=== PATIENT | male | born 1955 | race Caucasian/White ===

== ENCOUNTER 2020-02-19 12:13 | Outpatient (REF) | payer BC, SELFPAY ==
[2020-02-19 12:54] LABS: Basophils Absolute Auto 0.1 X10*3/uL (0.0-0.2); Basophils Percent Auto 0.9 % (0-2); Eosinophils Absolute Auto 0.3 X10*3/uL (0.0-0.4); Eosinophils Percent Auto 3.4 % (0-4); Hematocrit 41.5 % (42-52); Hemoglobin 13.2 g/dl (14.0-18.0); Imm Gran Abs Auto 0.02 X10*3/uL (0.00-0.03); Imm Gran Pct Auto 0.2 % (0.0-0.4); Lymphocytes Absolute Auto 2.4 X10*3/uL (1.2-4.9); Lymphocytes Percent Auto 25.4 % (20-40); MANUAL DIFF FLAG NO; Mean Corpuscular HGB Conc 31.8 g/dl (31.0-36.0); Mean Corpuscular Volume 88.1 fL (80-98); Mean Platelet Volume 8.9 fL (9.4-12.4); Monocytes Absolute Auto 0.7 X10*3/uL (0.1-1.2); Monocytes Percent Auto 7.8 % (2-11); Neutrophils Absolute Auto 5.9 X10*3/uL (2.0-8.3); Neutrophils Percent Auto 62.3 % (45-73); Platelet Count 259 X10*3/uL (160-400); Red Blood Count 4.71 X10*6/uL (4.60-5.80); Red Cell Distribution Width 13.4 % (11.0-16.0); White Blood Count 9.5 X10*3/uL (4.8-10.8)
[2020-02-19 13:37] LABS: Alanine Aminotransferase 9 U/L (0-40); Albumin Level 4.2 g/dL (3.5-5.0); Alkaline Phosphatase 50 U/L (39-117); Amylase 63 U/L (28-100); Anion Gap 11 (12-20); Aspartate Amino Transferase 15 U/L (5-37); Bilirubin Total 0.6 mg/dL (0.0-1.0); Blood Urea Nitrogen 8 mg/dL (9-16); C Reactive Protein 0.29 mg/dL (< or = 0.50); Calcium 8.7 mg/dL (8.4-10.2); Carbon Dioxide 29 mmol/L (22-29); Chloride 101 mmol/L (96-108); Cholesterol 240 mg/dL; Estimated Glomerular Filt Rate > 60; Glucose Fasting 82 mg/dL (60-99); HDL Cholesterol 54 mg/dL; Iron 70 mcg/dL (45-160); LDL Cholesterol Calculated 172 mg/dl; Lipase 16 U/L (8-78); Percent Iron Saturation 21 % (15-50); Potassium 4.4 mmol/l (3.3-5.1); Sodium 137 mmol/L (135-145); Total Iron Binding Capacity 332 mcg/dL (228-428); Total Protein 6.9 g/dL (6.5-8.0); Triglycerides 71 mg/dL; Unsaturated Iron Binding 262 ug/dL
[2020-02-19 13:55] LABS: Erythrocyte Sedimentation Rate 6 MM/HR (0-15)
[2020-02-19 13:58] LABS: Ferritin 193 ng/mL (20-250)
== END 2020-02-19 12:14 | disposition home or self-care (01) ==
LOC: HO.MANLDS 12:13
PROVIDERS: PCP Internal Medicine; Visit Provider Physician Assistant
DX: R10.30 Lower abdominal pain, unspecified (principal); E78.5 Hyperlipidemia, unspecified
CPT/HCPCS: 36415; 80053; 80061; 82150; 82728; 83540; 83690; 85025; 85652; 86140

== ENCOUNTER 2020-11-25 11:48 | Outpatient (REF) | payer BC, SELFPAY ==
[2020-11-25 15:01] LABS: Cholesterol 185 mg/dL; HDL Cholesterol 61 mg/dL; LDL Cholesterol Calculated 109 mg/dl; Triglycerides 76 mg/dL
== END 2020-11-25 11:49 | disposition home or self-care (01) ==
LOC: HO.MANLDS 11:48
PROVIDERS: PCP Internal Medicine; Visit Provider Internal Medicine
DX: E78.00 Pure hypercholesterolemia, unspecified (principal)
CPT/HCPCS: 36415; 80061

== ENCOUNTER 2021-07-22 09:47 | Outpatient (REF) | payer BC, SELFPAY ==
[2021-07-22 11:24] LABS: Cholesterol 184 mg/dL; HDL Cholesterol 62 mg/dL; LDL Cholesterol Calculated 114 mg/dl; Triglycerides 44 mg/dL
== END 2021-07-22 09:48 | disposition home or self-care (01) ==
LOC: HO.MANLDS 09:47
PROVIDERS: PCP Internal Medicine; Visit Provider Internal Medicine
DX: E78.00 Pure hypercholesterolemia, unspecified (principal)
CPT/HCPCS: 36415; 80061

== ENCOUNTER 2021-12-17 10:25 | Outpatient (REF) | payer BC, SELFPAY ==
[2021-12-17 14:20] LABS: Cholesterol 179 mg/dL; HDL Cholesterol 65 mg/dL; LDL Cholesterol Calculated 107 mg/dl; Triglycerides 39 mg/dL
[2021-12-17 14:28] LABS: Prostate Specific Antigen 0.16 ng/mL (<0.05-4.0)
== END 2021-12-17 10:26 | disposition home or self-care (01) ==
LOC: HO.MANLDS 10:25
PROVIDERS: Visit Provider Internal Medicine
DX: Z12.5 Encounter for screening for malignant neoplasm of prostate (principal)
CPT/HCPCS: 36415; 80061; 84153

== ENCOUNTER 2022-07-01 11:49 | Outpatient (REF) | payer BC, SELFPAY ==
[2022-07-01 15:07] LABS: Cholesterol 263 mg/dL; HDL Cholesterol 65 mg/dL; LDL Cholesterol Calculated 186 mg/dl; Triglycerides 64 mg/dL
== END 2022-07-01 11:50 | disposition home or self-care (01) ==
LOC: HO.MANLDS 11:49
PROVIDERS: Visit Provider Internal Medicine
DX: E78.00 Pure hypercholesterolemia, unspecified (principal)
CPT/HCPCS: 36415; 80061

== ENCOUNTER 2023-05-18 10:30 | Outpatient (REF) | payer BC, SELFPAY ==
[2023-05-18 13:12] LABS: MANUAL DIFF FLAG NO
[2023-05-18 13:40] LABS: Basophils Absolute Auto 0.1 X10*3/uL (0.0-0.2); Eosinophils Absolute Auto 0.4 X10*3/uL (0.0-0.4); Eosinophils Percent Auto 4.3 % (0-4); Hematocrit 39.7 % (42.0-52.0); Hemoglobin 12.6 g/dl (14.0-18.0); Imm Gran Abs Auto 0.01 X10*3/uL (0.00-0.03); Imm Gran Pct Auto 0.1 % (0.0-0.4); Lymphocytes Absolute Auto 2.3 X10*3/uL (1.2-4.9); Lymphocytes Percent Auto 24.3 % (20-40); Mean Corpuscular HGB Conc 31.7 g/dl (31.0-36.0); Mean Corpuscular Hemoglobin 28.1 pg (27.0-33.0); Mean Corpuscular Volume 88.4 fL (80.0-98.0); Mean Platelet Volume 9.2 fL (9.4-12.4); Monocytes Absolute Auto 0.8 X10*3/uL (0.1-1.2); Monocytes Percent Auto 8.1 % (2-11); Neutrophils Percent Auto 62.2 % (45-73); Platelet Count 229 X10*3/uL (160-400); Red Blood Count 4.49 X10*6/uL (4.60-5.80); Red Cell Distribution Width 13.8 % (11.0-16.0); White Blood Count 9.6 X10*3/uL (4.8-10.8)
[2023-05-18 14:24] LABS: Vitamin B12 > 2000 pg/mL (200-900)
[2023-05-18 14:26] LABS: Alanine Aminotransferase 15 U/L (0-40); Alkaline Phosphatase 37 U/L (39-117); Anion Gap 11 (12-20); Aspartate Amino Transferase 17 U/L (5-37); Bilirubin Total 0.7 mg/dL (0.0-1.0); Blood Urea Nitrogen 12 mg/dL (9-16); Calcium 9.1 mg/dL (8.4-10.2); Carbon Dioxide 29 mmol/L (22-29); Chloride 105 mmol/L (96-108); Cholesterol 177 mg/dL (<200); Estimated Glomerular Filt Rate > 60; Ferritin 161 ng/mL (20-250); Glucose Random 88 mg/dL (60-115); HDL Cholesterol 67 mg/dL (>40); Iron 59 mcg/dL (45-160); LDL Cholesterol Calculated 100 mg/dL (<100); Percent Iron Saturation 21 % (15-50); Potassium 4.8 mmol/L (3.3-5.1); Sodium 140 mmol/L (135-145); Total Iron Binding Capacity 284 mcg/dL (228-428); Total Protein 6.7 g/dL (6.5-8.0); Triglycerides 51 mg/dL (<150); Unsaturated Iron Binding 225 ug/dL
[2023-05-18 14:27] LABS: Prostate Specific Antigen 0.43 ng/mL (<0.05-4.0)
== END 2023-05-18 10:31 | disposition home or self-care (01) ==
LOC: HO.MANLDS 10:30
PROVIDERS: Visit Provider Internal Medicine
DX: Z12.5 Encounter for screening for malignant neoplasm of prostate (principal); E78.00 Pure hypercholesterolemia, unspecified
CPT/HCPCS: 36415; 80053; 80061; 82607; 82728; 83540; 84153; 85025

== ENCOUNTER 2023-06-25 13:31 | Outpatient (REF) | payer BC, SELFPAY ==
[2023-06-25 18:15] LABS: Alanine Aminotransferase 12 U/L (0-40); Albumin Level 4.1 g/dL (3.5-5.0); Alkaline Phosphatase 40 U/L (39-117); Aspartate Amino Transferase 17 U/L (5-37); Bilirubin Direct 0.2 mg/dL (0.0-0.5); Bilirubin Total 0.6 mg/dL (0.0-1.0); Total Protein 6.7 g/dL (6.5-8.0)
== END 2023-06-25 13:32 | disposition home or self-care (01) ==
LOC: HO.MANLDS 13:31
PROVIDERS: Visit Provider Internal Medicine
DX: B35.1 Tinea unguium (principal)
CPT/HCPCS: 36415; 80076

== ENCOUNTER 2024-01-11 11:43 | Outpatient (REF) | payer BC, SELFPAY ==
[2024-01-11 13:43] LABS: MANUAL DIFF FLAG NO
[2024-01-11 13:48] LABS: Basophils Absolute Auto 0.1 X10*3/uL (0.0-0.2); Basophils Percent Auto 0.9 % (0-2); Eosinophils Absolute Auto 0.3 X10*3/uL (0.0-0.4); Eosinophils Percent Auto 3.4 % (0-4); Hematocrit 40.6 % (42.0-52.0); Hemoglobin 12.9 g/dl (14.0-18.0); Imm Gran Abs Auto 0.03 X10*3/uL (0.00-0.03); Imm Gran Pct Auto 0.3 % (0.0-0.4); Lymphocytes Absolute Auto 2.3 X10*3/uL (1.2-4.9); Lymphocytes Percent Auto 22.4 % (20-40); Mean Corpuscular HGB Conc 31.8 g/dl (31.0-36.0); Mean Corpuscular Hemoglobin 27.7 pg (27.0-33.0); Mean Corpuscular Volume 87.3 fL (80.0-98.0); Mean Platelet Volume 8.9 fL (9.4-12.4); Monocytes Absolute Auto 0.7 X10*3/uL (0.1-1.2); Monocytes Percent Auto 7.1 % (2-11); Neutrophils Absolute Auto 6.7 x10*3/uL (2.0-8.3); Neutrophils Percent Auto 65.9 % (45-73); Platelet Count 240 X10*3/uL (160-400); Red Blood Count 4.65 X10*6/uL (4.60-5.80); Red Cell Distribution Width 13.6 % (11.0-16.0); White Blood Count 10.1 X10*3/uL (4.8-10.8)
[2024-01-11 14:54] LABS: Cholesterol 183 mg/dL (<200); HDL Cholesterol 61 mg/dL (>40); LDL Cholesterol Calculated 111 mg/dL (<100); Triglycerides 59 mg/dL (<150)
== END 2024-01-11 11:44 | disposition home or self-care (01) ==
LOC: HO.MANLDS 11:43
PROVIDERS: Visit Provider Internal Medicine
DX: K51.90 Ulcerative colitis, unspecified, without complications (principal); E78.00 Pure hypercholesterolemia, unspecified
CPT/HCPCS: 36415; 80061; 85025

== ENCOUNTER 2024-06-27 13:32 | Outpatient (REF) | payer OTHER, MEDICARE, SELFPAY ==
--- OUTSIDE RECORDS SUMMARY | 2024-06-27 15:37 | XMS_ITS ---
Author Organization [facility] Address [address] [facility] [place] [address] Care Team Providers Care Title Coordinator Name Role Phone Alvaro Luna MD Primary Care Provider Sherie Alex Unavailable [phone] Allergies Allergen (clinical drug ingredient) Drug/Non Drug Allergy documented on EMR Reaction Allergy Type Onset Date Status ibuprofen Advil blood in stool Drug Allergy Ac tive Aleve blood in stool Drug Allergy Ac tive Motrin blood in stool Drug Allergy Ac tive REASON FOR VISIT Fungal Nails, Ingrown nail(s) Medications Medication SIG (Take, Route, Frequency, Duration) Notes Start Date End Date Status Flagyl 0.75% Active Rosuvastatin Calcium 10 MG Oral for 7 Active Vitamin B12 Active Atorvastatin Calcium 10 MG 1 tablet Oral ly Once a day for 30 day(s) Not-Taking Ciclopirox Olamine 0.77 % 1 application to affected area Externally Twice a day to effected areas on feet for 30 days Active Cyanocobalamin 500 MCG Orally Active Social History Tobacco Use: Social History Observation Description Date Details (start date - stop date) Former Smoker NA - NA Tobacco Use/Smoking Question Answer Notes Are you a: former smoker Additional Findings: Tobacco Non-User Current no n-smoker Alcohol Screen Question Answer Notes Did you have a drink containing alcohol in the p ast year? Yes Points 0 Interpretation Negative Tobacco use other than smoking: Question Answer Notes Are you an other tobacco user? No Vital Signs Height 5ft 11in in 01/10/2024 Weight 168 lbs 01/10/2024 BMI 23.43 kg/m2 01/10/2024 Blood pressure systolic 120 mm Hg 01/10/20 24 Blood pressure diastolic 80 mm Hg 024 Encounters Encounter Location Date Provider Diagnosis [facility] [address] [place] [address] 01/10/2024 Sherie Perryaker Pain in right toe(s) M79.674 ; Onychomycosis B35.1 ; Pain in left toe(s) M79.675 and Ingrowing nail L60.0 Assessments Encounter Date Diagnosis (ICD Code) Assessment Notes Treatment Notes Treatment Clinical Notes Section Notes 01/10/2024 Pain in right toe(s) (ICD-10 - M79.674) 01/10/2024 Onychomycosis (ICD-10 - B35.1) 01/10/2024 Pain in left toe(s) (ICD-10 - M79.675) 01/10/2024 Ingrowing nail (ICD-10 - L60.0) Plan Of Treatment Next Appt Details Follow Up: 6 Months, Reason: Progress Notes * Shakeel CHUA CDOB:[birth year] (68 yo M)Acc No.[id number]:01/10/2024 Progress Note Patient:?Shakeel CHUA C Provider:?Sherie White DPM :1955???Age:68 Y???Sex:Male Tu e:01/10/2024 Address: [address], [facility] Pcp:Alvaro Luna MD Subjective: * Chief Complaints: * ???Fungal NailsIngrown nail( s) * HPI: ???Painful Nails:?Nature:?aching, tender, discolored, thick.?Location:?Both feet, all toenails.?Course:?improved.?Aggravated by:?shoegear causing difficulty standing/walking.?Treatments:?none.?Ingrown nail:?Ingrown nail?States ingrown to right big toe, tender in shoe gear, relates it is aching and has been going on for several weeks.?The ingrown nail has been present?for weeks.?Onset of the symptoms?was gradual.? * ROS:?General/Constitutional:?Nausea?denies.?Vomiting?denies.?Hunger Thirst?denies.?Loss appetite?denies.?Chills?denies.?Fatigue?denies.?Fever?denies.?Night Sweats?denies.?Unexplained weight loss?denies.?Unexplained weight gain?denies.?HEENTM:?Dentures?denies.?Dizziness?denies.?Glasses/contacts?denies.?Retinopathy?de nies.?Blurred/double vision?denies.?TMJ?denies.?Discharge/drainage?denies.?Implants?denies.?Sore throat?denies.?Dental implants?denies.?Hard of hearing ?denies.?Difficulty chewing/swallowing/speaking?denies.?Nose bleeds?denies.?Sore mouth?denies.?Respiratory:?On Oxygen?denies.?Pneumonia/pleurisy?denies.?Bronchitis?denies.?Emphysema?denies.?C oughing?denies.?Cough blood?denies.?Shortness of breath?denies.?Wheezing?denies.?Cardiovascular:?Pacemaker?denies.?MVP?denies.?WPW?denies.?CHF?denies.?Heart attack?denies.?Septal defect?denies.?Rapid beat?denies.?Chest pain ?denies.?Atrial Fib.?denies.?Murmur/Palpitations?denies.?Gastrointestinal:?Hemorrhoids?denies.?Stomach/Abdominal pain?denies.?Dark blood stool?denies.?Irritable bowel ?denies.?Constipation?denies.?Diarrhea?denies.?Hematology:?Swelling?denies.?Clots?denies.?Varicose Veins?denies.?Bruising?denies.?Bleeding problem?denies.?Genitourinary:?Blood urine?denies.?Frequent/Painfu/urination/bladder control?denies.?Kidney stones?denies.?Infection (UTI)?denies.?Nephropathy?denies.?sex trans dis (STD)?denies.?Prostate?denies.?Musculoskeletal:?Hammertoes?denies.?Bunions?denies.?Back Pain?denies.?Muscle Cramps/ Resting?denies.?Muscle cramps / walking?denies.?Generalized aches and pains?denies.?Weakness?denies.?Integ.:?Brito?denies.?Scars?denies.?Corns/calluses?denies.?Ingrown nails?denies.?Painful nails?denies.?Open Sores?denies.?Rashes?denies.?Neurologic:?Difficulty sleeping?denies.?Brain disorder?denies.?Numbness?denies.?Balance trouble?denies.?Confusion?denies.?Fainting/blackouts?denies.?Tingling?denies.?Tr emors?denies.? * Medical History:? * Surgical History:?colectomy 1994 * Hospitalization/Major Diagno stic Procedure:?Denies Past Hospitalization * Family History:?Mother: dece ased, diagnosed with Family history of arthritis.?Father: , cancer, heart attack.? * Social History:?Tobacco Use:?Tobacco Use/Smoking?Are you a:?former smoker ?Additional Findings: Tobacco Non-User?Current non-smoker ?Tobacco use other than smoking?Are you an other tobacco user??No ???Drugs/Alcohol:?Drugs?Have you used drugs other than those for medical reasons in the past 12 months??No ?Alcohol Screen?Did you have a drink containing alcohol in the past year??Yes ?Points?0 ?Interpretation?Negative ???Miscellaneous:?Caffeine: yes, frequency:, 2-3 cups per day. ?Children: yes, 1. ?Exercise: yes, weightlifting, treadmill. ?Marital status: . ?Occupation: Reilter. * Medications:?TakingCiclopiro x Olamine 0.77 % Cream 1 application to affected area Externally Twice a day to effected areas on feet Cyanocobalamin 500 MCG Tablet Chewable Orally Flagyl 0.75% Rosuvastatin Calcium 10 MG Tablet Oral Vitamin B12 Taking Ciclopirox Olamine 0.77 % Cream 1 application to affected area Externally Twice a day to effected areas on feet Taking Cyanocobalamin 500 MCG Tablet Chewable Orally Taking Flagyl 0.75% Taking Rosuvastatin Calcium 10 MG Tablet Oral Taking Vitamin B12 Not-Taking/PRNAtorvastatin Calcium 10 MG Tablet 1 tablet Orally Once a day Medication List reviewed and reconciled with the patientNot-Taking/PRN Atorvastatin Calcium 10 MG Tablet 1 tablet Orally Once a day Medication List reviewed and reconciled with the patient * Allergies:?Advil: blood in s toolAleve: blood in stoolMotrin: blood in stoolyes[Allergies Verified] Objective: * Vitals:?Ht:5ft 11in, Wt:168, BMI:23.43, Shoe size:10, BP:120/80mm Hg, Ht-cm: 180.34 cm, Wt-k.2 kg. * Examination: ???General Examination: ?GENERAL APPEARANCE:?pleasant, alert, well nourished, well developed, well hydrated, with good attention to hygene/body habitus, and in no acute distress.?ORIENTED:?person,place, and time.?Neurological: ?SENSORY:?neurological exam reveals intact sensorium, pain sensation normal, vibration sensation intact, pinprick sensation is normal in the lower extremities, anesthesia, burning, tingling, B/L.?Vascular: ?DP PULSES(B):?2/4, B/L.?PT PULSES(B):?2/4, B/L.?CAPILLARY FILL TIME:?3 secs. per digit. B/L.?TROPHIC CONDITION-TEXTURE/ELASTICITY/TURGOR/HAIR GROWTH(B):?normal, B/L.?TEMPERTURE GRADIENT(C):?normal, B/L.?PIGMENTATION:?normal, B/L.?EDEMA(C):?absent, B/L.?TELANGECTASIA:?absent, B/L.?Dermatologic: ?SKIN FINDINGS:?Skin exam reveals normal color, texture, elasticity, and turgor. There are no masses, nor excrescences. The interspaces are clear, B/L.?Nails: ?NAILS are:?Elongated, overgrown, dystrophic, lytic, greater than 3mm thick, discolored and friable with crumbly malodorous subungual debris, with pain on palpation, proximal clearing of nail 60 percent, TA, T1, T2, T3, T4, T6, T7, T8, T9.?Orthopedic: ?MUSCLE STRENGTH:?5/5 all groups in a symmetrical fashion , B/L.?Ingrown Nail: ?INSPECTION:?incurvation,pain on palpation,groove hypertrophy medial nail border, T5.? Assessment: * Assessment: 1.?Pain in right toe(s) - M7 9.674???2.?Onychomycosis - B35.1 (Primary)???Specify :Acute problem, Uncomplicated (3) Improved???3.?Pain in left toe(s) - M79.675???4.?Ingrowing nail - L60.0???Specify :Medial nail border, T5 Acute problem, Uncomplicated (3)??? Plan: * Treatment: * Procedure Codes:? * Preventive Medicine:? ??Counseling:?Discussion:?-13: Office or other outpatient visit for the evaluation and management of an established patient, which required a medically appropriate history and/or examination and LOW level of DECISION MAKING for: 1 STABLE ACUTE UNCOMPLICATED PROBLEM, 2 OR MORE MINOR PROBLEMS, OR 1 STABLE CHRONIC PROBLEM, THAT POSE(S) A LOW RISK FOR MORBIDITY/MORTALITY. The visit on the day of the encounter encompassed interpreting the data and educating the patient as to the nature of their condition, treatment options available according to their individual PMH, meds, allergies, and overall health/living conditions, as well as any potential risks or complications that may occur from a failure to adhere to, and participate in, the recommended course of therapy. The discussion included a complete verbal, and/or written explanation of the examination results, any x-rays taken, the proposed diagnosis, and outline of the treatment plan. A schedule for future care needs was also explained. The patient verbalized an understanding of the instructions at this time and agreed to be an active participant in their treatment. If the patient should think of any questions or concerns after the visit, I have encouraged the patient to call the office.?Abscess/Paraonychia/Ingrown Nails:?We discussed the possible etiologies (genetic, improper nail care, shoe gear, nail trauma) which may lead to ingrown nails and/or paronychial infections. We discussed and reviewed palliative/nonsurgical/deferring definitive treatment (vs) undergoing the treatment procedures of nail avulsion(s) or PNA, which may prevent recurrence and give more lasting results. The possible risks/complications such as worsened condition/delayed healing/nonhealing/failure/recurrence/infection, the potential benefits/advantages of decreased pain/deformity, as well as alterative treatment options including applying nail softening agents/nail groove packing were discussed. No guarantees were given regarding any outcome for any procedure. The patient was educated in the length of time for the affected nail to regrow once completely healed from a nail avulsion procedure. Once the condition has completely healed, the patient was consulted on proper nail care. Patient questions such as details of each procedure, varying time to heal, activity post procedure, and shoe gear were discussed and the answers were verbally confirmed fully understood, slant back performed with good relief of pain, pt to monitor for any signs of infection, pt should soak in warm water and epsom salts and apply antibotic ointment, call with any issues, Pt will consider PNA if nail cont to regrow ingrown.?Fungal Nail Counseling:?PREVENTIVE STRATEGIES were reviewed with the patient to avoid recurrent infection. A set of verbal and written instructions regarding proper daily footcare techniques was discussed and dispensed..? * Follow Up:?6 Months * * Sign off status: Completed true * Provider:?Sherie White DPM Date:?1 03/11/2023 Generated for Mercedez lazo/Srinivasa/Trinityitting on:?06/27/2024 03:37 PM EDT History and Physical Notes * HPI (History of Present Illness) Category Sub-Category Detail Notes Category Not es Ingrown nail The ingrown nail has been present for wee ks Onset of the symptoms was gradual Ingrown nail States ingrown to ri ght big toe, tender in shoe gear, relates it is aching and has been going on for several weeks Painful Nails Aggravated by: shoegear causing difficul ty standing/walking Course: improved Location: Both feet, all toena ils Nature: aching, tender, disc olored, thick Treatments: none Examination Category Sub-Category Detail Notes Category Not es Neurological SENSORY: neurological exa m reveals intact sensorium, pain sensation normal, vibration sensation intact, pinprick sensation is normal in the lower extremities, anesthesia, burning, tingling, B/L Dermatologic SKIN FINDINGS: Skin exam reveal s normal color, texture, elasticity, and turgor. There are no masses, nor excrescences. The interspaces are clear, B/L Orthopedic MUSCLE STRENGTH: 5/5 all groups in a symmetrical fashion , B/L General Examination GENERAL APPEARANCE: pleasant , alert, well nourished, well developed, well hydrated, with good attention to hygene/body habitus, and in no acute distress ORIENTED: person,place, and ti me Vascular DP PULSES (B): 2/4, B/L PT PULSES (B): 2/4, B/L CAPILLARY FILL TIME: 3 secs. per digit. B/L TEMPERTURE GRADIENT (C): normal, B/L TROPHIC CONDITION-TEXTURE/ELASTICITY/TUR GOR/HAIR GROWTH (B): normal, B/L EDEMA (C): absent, B/L TELANGECTASIA: absent, B/L PIGMENTATION: normal, B/L Nails NAILS are: Elongated, overg rown, dystrophic, lytic, greater than 3mm thick, discolored and friable with crumbly malodorous subungual debris, with pain on palpation, proximal clearing of nail 60 percent, TA, T1, T2, T3, T4, T6, T7, T8, T9 Ingrown Nail INSPECTION: incurvation,pain on palpation,groove hypertrophy medial nail border, T5
--- OUTSIDE RECORDS SUMMARY | 2024-06-27 15:38 | XMS_ITS | Patient Health Record ---
Author Organization [facility] nando Everett Address [address] [place] [address] Care Team Providers Care Thread Singer Name Role Phone Alvaro Luna MD Primary Care Provider Unavailabl e Sherie White Unavailable [phone] Krish Morel Unavailable [phone] Allergies Allergen (clinical drug ingredient) Drug/Non Drug Allergy documented on EMR Reaction Allergy Type Onset Date Status ibuprofen Advil blood in stool Drug Allergy Ac tive Aleve blood in stool Drug Allergy Ac tive Motrin blood in stool Drug Allergy Ac tive Reason For Referral Diagnosis 1 Pain in unspecified foot (M79.673) Referring Provider First Name Alvaro Referring Provider Last Name [facility] Referred [facility] Referred Provider Krish Morel Referred Address [address] [place], [place],[address], Referred Provider Specialty Podiatry Referral Priority Routine Diagnosis 1 Other viral warts (B 07.8) Diagnosis 2 Pain in right foot ( M79.671) Diagnosis 3 Pain in left foot (M 79.672) Diagnosis 4 Tinea pedis (B35.3) Diagnosis 5 Tinea unguium (B35.1 ) Diagnosis 6 Pain in left toe(s) (M79.675) Diagnosis 7 Pain in right toe(s) (M79.674) Diagnosis 8 Ingrowing nail (L60. 0) Referring Provider First Name Alvaro Referring Provider Last Name Amanda Referred [facility] Referred Provider Sherie White Referred Address [address] [place] [phone], Referred Provider Specialty Podiatry Referral Priority Routine Medications Medication SIG (Take, Route, Frequency, Duration) [...] days Active Cyanocobalamin 500 MCG Orally Active Immunizations Vaccine Route Administration Date Status Comme nts COVID-19 Pfizer BioNT[employer] Vaccine Unknown 01/15/2021 Administered 1st 05/25/20 2nd 06/15/20 Social History Tobacco Use: Social History Observation [...] an other tobacco user? No Vital Signs Blood pressure diastolic 80 mm Hg 01/10/2024 Height 5ft 11in in 01/10/2024 Blood pressure systolic 120 mm Hg 01/10/2024 Weight 168 lbs 01/10/2024 BMI 23.43 kg/m2 01/10/2024 Encounters Encounter Location Date Provider Diagnosis [facility] [address] 07/12/2023 Krish Morel Other viral warts B07.8 ; Pain in right foot M79.671 ; Pain in left foot M79.672 ; Tinea pedis B35.3 ; Tinea unguium B35.1 ; Pain in right toe(s) M79.674 ; Pain in left toe(s) M79.675 and Xerosis cutis L85.[address] [facility] [address] 01/10/2024 Sherie White Pain in right toe(s) M79.674 ; Onychomycosis B35.1 ; Pain in left toe(s) M79.675 and Ingrowing nail L60.0 [facility] [address] [address] 06/20/2024 Sherie White Assessments Encounter Date Diagnosis (ICD Code) Assessment Notes Treatment Notes Treatment Clinical Notes Section Notes 07/12/2023 Other viral warts (ICD-10 - B07.8) 01/10/2024 Pain in right toe(s) (ICD-10 - M79.674) 01/10/2024 Onychomycosis (ICD-10 - B35.1) 01/10/2024 Pain in left toe(s) (ICD-10 - M79.675) 07/12/2023 Pain in right foot (ICD-10 - M79.671) 07/12/2023 Pain in left foot (ICD-10 - M79.672) 01/10/2024 Ingrowing nail (ICD-10 - L60.0) 07/12/2023 Tinea pedis (ICD-10 - B35.3) 07/12/2023 Tinea unguium (ICD-10 - B35.1) 07/12/2023 Pain in right toe(s) (ICD-10 - M79.674) 07/12/2023 Pain in left toe(s) (ICD-10 - M79.675) 07/12/2023 Xerosis cutis (ICD-10 - L85.3) Plan Of Treatment Pending Test Test Name Order Date [id number] Destruction, -07/20/2022 Insurance Providers Payer Name Payer Address Payer Phone Subscriber Number Group Number Insured Name Patient Relationship to Insured Coverage Start Date Coverage End Date [facility] [address] [place] [address] [phone] [id number] Azul Bowen Spouse - patient is the spouse of the insured Medical (General) History Medical History History ICD Code CAD (Cholesterol) Lyme disease in the past Measles Mumps Warts plantar Transfusions Rosacea Surgical History Surgery Date(Month/Year) colectomy 1993
--- OUTSIDE RECORDS SUMMARY | 2024-06-27 15:38 | XMS_ITS ---
Author Organization [facility] Address [address] [place] [address] Care Team Providers Care Fruit Grower Name Role Phone Alvaro Luna MD Primary Care Provider UnavailSherie Bright Unavailable [phone] Krish Morel Unavailable [phone] Allergies Allergen (clinical drug ingredient) Drug/Non Drug Allergy documented on EMR Reaction Allergy Type Onset Date Status ibuprofen Advil blood in stool Drug Allergy Ac tive Aleve blood in stool Drug Allergy Ac tive Motrin blood in stool Drug Allergy Ac tive REASON FOR VISIT R/S 11/19/21, Painful nail(s) aggrevated by shoes and causing difficulty standing/walking. Medications Medication SIG (Take, Route, Frequency, Duration) Notes Start Date End Date Status Vitamin B12 Active Atorvastatin Calcium 10 MG 1 tablet Oral ly Once a day for 30 day(s) Not-Taking Rosuvastatin Calcium 10 MG Oral for 7 Active Ciclopirox Olamine 0.77 % 1 application to affected area Externally Twice a day to effected areas on feet for 30 days Active Cyanocobalamin 500 MCG Orally Active Flagyl 0.75% Active Social History Tobacco Use: Social History [...] No Vital Signs Height 5ft 11in in 07/12/2023 Weight 168 lbs 07/12/2023 BMI 23.43 kg/m2 07/12/2023 Blood pressure systolic 120 mm Hg 07/12/19 24 Blood pressure diastolic 80 mm Hg 024 Encounters Encounter Location Date Provider Diagnosis [facility] [address] [place] [address] 07/12/2023 Krish Morel Other viral warts B07.8 ; Pain in right foot M79.671 ; Pain in left foot M79.672 ; Tinea pedis B35.3 ; Tinea unguium B35.1 ; Pain in right toe(s) M79.674 ; Pain in left toe(s) M79.675 and Xerosis cutis L85.3 Assessments Encounter Date Diagnosis (ICD Code) Assessment Notes Treatment Notes Treatment Clinical Notes Section Notes 07/12/2023 Other viral warts (ICD-10 - B07.8) 07/12/2023 Pain in right foot (ICD-10 - M79.671) 07/12/2023 Pain in left foot (ICD-10 - M79.672) 07/12/2023 Tinea pedis (ICD-10 - B35.3) 07/12/2023 Tinea unguium (ICD-10 - B35.1) 07/12/2023 Pain in right toe(s) (ICD-10 - M79.674) 07/12/2023 Pain in left toe(s) (ICD-10 - M79.675) 07/12/2023 Xerosis cutis (ICD-10 - L85.3) Plan Of Treatment Medication Medication Name Sig Start Date Stop Date Notes Ciclopirox Olamine 0.77 % 1 application to affected area Externally Twice a day to effected areas on feet for 30 days Next Appt Details Follow Up: 6 Months, Reason: Progress Notes * Shakeel CHUA CDOB:[birth year] (67 yo M)Acc No.[id number]:07/12/2023 Progress Note Patient:?Shakeel Chua Provider:?Krish Morel DPM :1955???Age:67 Y???Sex:Male Tu e:07/12/2023 Address:[address], [place], [id number] Pcp:Alvaro Luna MD Subjective: * Chief Complaints: * ???R/S 11/19/21 Painful nail( s) aggrevated by shoes and causing difficulty standing/walking. * HPI: ???Skin problems:?Nature:?redness, scaling.?Location:?B/L , Midfoot, Heel/Rearfoot.?Duration:?several months.?Onset/Cause:?unknown.?Aggravated by:?no aggrevating factors.?Treatments:?Topical antifungal--pt has been started on oral terbinafine daily from PCP beginning 05/31/23.? * ROS:?General/Constitutional:?Nausea?denies.?Vomiting?denies.?Hunger Thirst?denies.?Loss appetite?denies.?Chills?denies.?Fatigue?denies.?Fever?denies.?Night Sweats?denies.?Unexplained weight loss?denies.?Unexplained [...] Twice a day to effected areas on feetCyanocobalamin 500 MCG Tablet Chewable Orally Flagyl 0.75% Rosuvastatin Calcium 10 MG Tablet Oral Vitamin B12 Taking Ciclopirox Olamine 0.77 % Cream 1 application to affected area Externally Twice a day to effected areas on feetTaking Cyanocobalamin 500 MCG Tablet Chewable Orally Taking Flagyl 0.75% Taking Rosuvastatin Calcium 10 MG Tablet Oral Taking Vitamin B12 Not-Taking/PRNAtorvastatin Calcium 10 MG Tablet 1 tablet Orally Once a dayMedication List reviewed and reconciled with the patientNot-Taking/PRN Atorvastatin Calcium 10 MG Tablet 1 tablet Orally Once a dayMedication List reviewed and reconciled with the patient * Allergies:?Advil: blood in s toolAleve: blood in stoolMotrin: blood in stoolyes[Allergies Verified] Objective: * Vitals:?Ht: 5ft 11in, Wt:168 , BMI:23.43, Shoe size:10, BP:120/80 mm Hg. * Examination: ???General Examination: ?GENERAL APPEARANCE:?pleasant, alert, well nourished, well developed, well hydrated, with good attention to hygene/body habitus, and in no acute distress.?ORIENTED:?person,place, and time.?Neurological: ?SENSORY:?neurological exam reveals intact sensorium, pain sensation normal, vibration sensation intact, pinprick sensation is normal in the lower extremities, anesthesia, burning, tingling, B/L.?Vascular: ?DP PULSES:?2/4, B/L.?PT PULSES:?04/04, B/L.?CAPILLARY FILL TIME:?3 secs. per digit. B/L.?SKIN TEMPERTURE GRADIENT OF THE LOWER EXTERMITIES:?normal, B/L.?HAIR GROWTH/TEXTURE/ELASTICITY/TURGOR:?normal, B/L.?PIGMENTATION:?normal, B/L.?EDEMA:?absent, B/L.?TELANGECTASIA:?absent, B/L.?Dermatologic: ?SKIN FINDINGS:? Skin shows sign(s) of, erythema, scaling, in a moccasin fashion, no fissure(s) present, B/L.?Orthopedic: ?MUSCLE STRENGTH:?5/5 all groups in a symmetrical fashion , B/L.?Nails: ?NAILS are:? Elongated, overgrown, dystrophic, lytic, greater than 3mm thick, discolored and friable with crumbly malodorous subungual debris, 1-5 B/L .? Assessment: * Assessment: 1.?Other viral warts - B07.8 (Primary)?2.?Pain in right foot - M79.671?3.?Pain in left foot - M79.672?4.?Tinea pedis - B35.3?5.?Tinea unguium - B35.1?6.?Pain in right toe(s) - M79.674?7.?Pain in left toe(s) - M79.675?8.?Xerosis cutis - L85.3? Plan: * Treatment: * Procedure Codes:? * [...] have encouraged the patient to call the office--pt to finish course of oral lamisil .? * Follow Up:?6 Months * Images: * Sign off status: Completed true * Provider:?Krish Morel DPM Date:? 024 Generated for Mercedez lazo/Srinivasa/Eliz on:?06/27/2024 03:37 PM EDT History and Physical Notes * HPI (History of Present Illness) Category Sub-Category Detail Notes Category Not es Skin problems Nature: redness, scaling Location: B/L , Midfoot, Heel/ Rearfoot Duration: several months Onset/Cause: unknown Aggravated by: no aggrevating facto rs Treatments: Topical antifungal-- pt has been started on oral terbinafine daily from PCP beginning 05/31/23 Examination Category Sub-Category Detail Notes Category Not es Neurological SENSORY: neurological exa m reveals intact sensorium, pain sensation normal, vibration sensation intact, pinprick sensation is normal in the lower extremities, anesthesia, burning, tingling, B/L Dermatologic SKIN FINDINGS: Skin shows sign( s) of, erythema, scaling, in a moccasin fashion, no fissure(s) present, B/L Orthopedic MUSCLE STRENGTH: 5/5 all groups [...] and friable with crumbly malodorous subungual debris, 1-5 B/L
--- OUTSIDE RECORDS SUMMARY | 2024-06-27 15:38 | XMS_ITS ---
Author Organization [facility] Address [address] [place] [address] Care Team Providers Care Health Coach Name Role Phone Alvaro Luna MD Primary Care Provider UnavailSherie Bright [phone] REASON FOR VISIT CX 07/03/24 appt Encounters Encounter Location Date Provider Diagnosis [address] [address] 06/20/2024 Sherie White Plan Of Treatment No Information Progress Notes * TOMA Shakeel CDOB:[birth year] (68 yo M)Acc No.[id number]:06/20/2024 Patient:?Shakeel CHUA Frances :1955???Age:68 Y???Sex:Male Address:[address] [place] [address] * true * Date:? Generated for Printi ng/Faxing/eTransmitting on:?06/27/2024 03:37 PM EDT
[2024-06-27 16:55] LABS: MANUAL DIFF FLAG NO
[2024-06-27 16:59] LABS: Basophils Absolute Auto 0.1 X10*3/uL (0.0-0.2); Basophils Percent Auto 0.9 % (0-2); Eosinophils Absolute Auto 0.4 X10*3/uL (0.0-0.4); Eosinophils Percent Auto 3.4 % (0-4); Hematocrit 38.1 % (42.0-52.0); Hemoglobin 12.2 g/dl (14.0-18.0); Imm Gran Abs Auto 0.03 X10*3/uL (0.00-0.03); Imm Gran Pct Auto 0.3 % (0.0-0.4); Lymphocytes Absolute Auto 2.8 X10*3/uL (1.2-4.9); Mean Corpuscular Volume 87.4 fL (80.0-98.0); Mean Platelet Volume 9.2 fL (9.4-12.4); Monocytes Absolute Auto 0.9 X10*3/uL (0.1-1.2); Monocytes Percent Auto 8.8 % (2-11); Neutrophils Absolute Auto 6.4 x10*3/uL (2.0-8.3); Neutrophils Percent Auto 60.6 % (45-73); Platelet Count 256 X10*3/uL (160-400); Red Blood Count 4.36 X10*6/uL (4.60-5.80); Red Cell Distribution Width 13.7 % (11.0-16.0); White Blood Count 10.6 X10*3/uL (4.8-10.8)
[2024-06-27 17:21] LABS: Alanine Aminotransferase 14 U/L (0-40); Albumin Level 4.2 g/dL (3.5-5.0); Alkaline Phosphatase 41 U/L (39-117); Anion Gap 9 (12-20); Aspartate Amino Transferase 25 U/L (5-37); Bilirubin Total 0.7 mg/dL (0.0-1.0); Blood Urea Nitrogen 6 mg/dL (9-16); Calcium 8.6 mg/dL (8.4-10.2); Carbon Dioxide 28 mmol/L (22-29); Chloride 104 mmol/L (96-108); Cholesterol 177 mg/dL (<200); Estimated Glomerular Filt Rate > 60; Glucose Random 79 mg/dL (60-115); HDL Cholesterol 63 mg/dL (>40); Iron 73 mcg/dL (45-160); LDL Cholesterol Calculated 100 mg/dL (<100); Percent Iron Saturation 26 % (15-50); Sodium 137 mmol/L (135-145); Total Iron Binding Capacity 276 mcg/dL (228-428); Total Protein 6.7 g/dL (6.5-8.0); Triglycerides 70 mg/dL (<150); Unsaturated Iron Binding 203 ug/dL
[2024-06-27 17:37] LABS: Ferritin 105 ng/mL (20-250)
[2024-06-27 17:44] LABS: Folate 7.4 ng/mL (> or = 4.0); Vitamin B12 370 pg/mL (200-900)
== END 2024-06-27 13:33 | disposition home or self-care (01) ==
LOC: HO.MANLDS 13:32
PROVIDERS: Visit Provider Physician Assistant
DX: E78.00 Pure hypercholesterolemia, unspecified (principal); D50.9 Iron deficiency anemia, unspecified
CPT/HCPCS: 36415; 80053; 80061; 82607; 82728; 82746; 83540; 85025

== ENCOUNTER 2024-08-09 09:43 | Outpatient (REF) | payer MEDICARE, SELFPAY ==
--- OUTSIDE RECORDS SUMMARY | 2024-08-09 10:41 | XMS_ITS ---
Author Organization [facility] Address [address] [place] [address] Care Team Providers Care Administrator Health Care Facility Name Role Phone Alvaro Luna MD Primary Care Provider Sherie Alex [facility] [phone] Encounters Encounter Location Date Provider Diagnosis [facility] [address] [place] [address] 07/03/2024 Sherie White Plan Of Treatment No Information Progress Notes * Shakeel CHUA CDOB:[birth year] (68 yo M)Acc No.[id number]:07/03/2024 Progress Note Patient:?Shakeel CHUA Provider:?Sherie White DPM :1955???Age:68 Y???Sex:Male Tu e:07/03/2024 Address:[address] [id number] Pcp:Alvaro Luna MD Subjective: * Chief Complaints: * ??? * Medical History:? Objective: * Vitals:? Assessment: Plan: * Treatment: * Images: * The named appointment provid er may or may not be the originator of this progress note, and it is not deemed complete until electronically signed by the appointment provider. Sign off status: Pending * Provider:?Sherie White DPM Date:?0 07/03/2024 Generated for Mercedez lazo/Srinivasa/Eliz on:?08/09/2024 10:40 AM EDT
[2024-08-09 14:14] LABS: Prostate Specific Antigen 0.24 ng/mL (<0.05-4.0)
== END 2024-08-09 09:44 | disposition home or self-care (01) ==
LOC: HO.MANLDS 09:43
PROVIDERS: Visit Provider Internal Medicine
DX: R35.1 Nocturia (principal)
CPT/HCPCS: 36415; 84153